=== PATIENT | female | born 1980 ===

== ENCOUNTER 2020-03-21 10:48 | Outpatient (REF) | payer BC, SELFPAY ==
[2020-03-26 01:04] LABS: SARS-CoV-2 RNA Undetected (Undetected); SARS-CoV-2 Specimen Source Nasal
== END 2020-03-21 11:08 ==
LOC: NCHCN 10:48
PROVIDERS: PCP Internal Medicine; Visit Provider Internal Medicine
DX: Z11.59 Encounter for screening for other viral diseases (principal)
CPT/HCPCS: U0003